=== PATIENT | male | born 1960 | race Caucasian/White ===

== ENCOUNTER → 2016-12-01 | Outpatient (CLI) | payer OTHER ==
[~2016-12-01] MED LIST: ALBUTEROL0.09 MG/A2 IH; CLARITIN10 MG PO; TOBRADEX 0.1%-0.5 ML OPH; ZITHROMAX Z PA250 MG PO
== END | disposition home or self-care (01) ==
LOC: US 15:55
DX: Z13.29 Encounter for screening for other suspected endocrine disorder (principal); E04.9 Nontoxic goiter, unspecified

== ENCOUNTER → 2016-12-09 | Outpatient (CLI) | payer OTHER ==
[2016-12-09 07:20] LABS: HEMATOCRIT 46.3 % (42.0-52.0); HEMOGLOBIN 15.3 g/dl (14.0-18.0); MEAN CELL VOLUME 90.8 fl (80.0-94.0); MEAN PLATELET VOLUME 10.8 fl (9.6-12.3); RED BLOOD COUNT 5.1 10*6/uL (4.50-5.90); RED CELL DISTRI WIDTH 13.3 % (0-14.5); WHITE BLOOD COUNT 7.7 10*3/uL (4.8-10.8)
[2016-12-09 07:51] LABS: ALBUMIN 3.8 gm/dl (3.1-4.5); ALKALINE PHOSPHATASE 99 U/L (45-117); BILIRUBIN, TOTAL 0.6 mg/dl (0.2-1.0); BUN 20 mg/dl (7-24); CARBON DIOXIDE 26 mmol/L (21-32); CHLORIDE 110 mmol/L (98-107); CHOLESTEROL 154 mg/dL (<200); EST GLOM FILT AFRICAN AMERICAN > 60 ml/min; FREE T4 0.82 ng/dl (0.76-1.46); GLUCOSE 103 mg/dL (65-99); HDL CHOLESTEROL 35 mg/dl (40-60); LDL CHOLESTEROL 75 mg/dL (9-159); POTASSIUM 4.1 mmol/L (3.5-5.1); SGOT/AST 25 IU/L (3-35); SGPT/ALT 55 U/L (12-78); SODIUM 144 mmol/L (136-145); TOTAL PROTEIN 7.1 gm/dL (6.4-8.2); TRIGLYCERIDES 222 mg/dl (<150); VLDL CHOLESTEROL 44 mg/dL (6-40)
== END | disposition home or self-care (01) ==
LOC: LAB 06:44
PROVIDERS: Family Medicine
DX: E04.2 Nontoxic multinodular goiter (principal); E55.9 Vitamin D deficiency, unspecified; R53.83 Other fatigue; E78.00 Pure hypercholesterolemia, unspecified

== ENCOUNTER → 2017-02-15 | Outpatient (CLI) | payer OTHER | END | disposition home or self-care (01) | LOC: LAB 23:35 | DX: E89.0 Postprocedural hypothyroidism (principal) ==

== ENCOUNTER → 2017-04-20 | Outpatient (CLI) | payer OTHER | END | disposition home or self-care (01) | LOC: LAB 07:38 | PROVIDERS: Internal Medicine Endocrinology, Diabetes & Metabolism | DX: C73 Malignant neoplasm of thyroid gland (principal); E89.0 Postprocedural hypothyroidism ==

== ENCOUNTER → 2017-07-07 | Outpatient (CLI) | payer OTHER ==
[2017-07-07 07:55] LABS: FREE T4 1.1 ng/dl (0.76-1.46)
[2017-07-07 08:00] LABS: THYROID STIM HORMONE (HS) 0.917 uIU/ml (0.358-4.75)
== END | disposition home or self-care (01) ==
LOC: LAB 06:59
PROVIDERS: Family Medicine
DX: Z12.5 Encounter for screening for malignant neoplasm of prostate (principal); E03.9 Hypothyroidism, unspecified

== ENCOUNTER → 2017-08-04 | Outpatient (CLI) | payer OTHER | END | disposition home or self-care (01) | LOC: CT 15:38 | DX: N20.0 Calculus of kidney (principal); K76.0 Fatty (change of) liver, not elsewhere classified ==

== ENCOUNTER → 2017-08-25 | Outpatient (CLI) | payer OTHER | END | disposition home or self-care (01) | LOC: MRI 10:00 → LAB 14:38 → MRI 15:00 | DX: H91.93 Unspecified hearing loss, bilateral (principal); H74.21 Discontinuity and dislocation of right ear ossicles; E89.0 Postprocedural hypothyroidism; Z85.850 Personal history of malignant neoplasm of thyroid ==

== ENCOUNTER 2017-09-06 13:52 | Emergency (ER) | payer OTHER ==
[~2017-09-06] VITALS: Ht 182.8 cm; Wt 113.4 kg
[2017-09-06] MEDS ORDERED: LEVOTHYROXINE137 MCG PO (14:22)
[2017-09-06] MEDS ORDERED: ORPHENADRINE C100 M1 PO (17:21)
[2017-09-06] MEDS ORDERED: NAPROSYN500 MG PO (17:21)
[2017-09-06 17:50] VITALS: BP 124/84
== END 2017-09-06 17:53 | disposition home or self-care (01) ==
LOC: ED 13:52
DX: S16.1XXA Strain of muscle, fascia and tendon at neck level, initial encounter (principal); S00.83XA Contusion of other part of head, initial encounter; Z79.899 Other long term (current) drug therapy; Z91.030 Bee allergy status; V49.88XA Car occupant (driver) (passenger) injured in other specified transport accidents, initial encounter; Y93.89 Activity, other specified; Y92.413 State road as the place of occurrence of the external cause; Y99.9 Unspecified external cause status

== ENCOUNTER → 2017-09-21 | Outpatient (CLI) | payer OTHER ==
[~2017-09-21] MED LIST changes: +LEVOTHYROXINE137 MCG PO; +NAPROSYN500 MG PO; +ORPHENADRINE C100 M1 PO
== END | disposition home or self-care (01) ==
LOC: MRI 08:56
DX: Q04.9 Congenital malformation of brain, unspecified (principal); R51 Headache

== ENCOUNTER → 2018-03-06 | Outpatient (CLI) | payer OTHER | END | disposition home or self-care (01) | LOC: LAB 10:44 | PROVIDERS: Internal Medicine Endocrinology, Diabetes & Metabolism | DX: E89.0 Postprocedural hypothyroidism (principal); C73 Malignant neoplasm of thyroid gland ==

== ENCOUNTER → 2018-06-28 | Outpatient (CLI) | payer OTHER | END | disposition home or self-care (01) | LOC: LAB 07:33 | DX: E89.0 Postprocedural hypothyroidism (principal) ==

== ENCOUNTER → 2018-08-23 | Outpatient (CLI) | payer OTHER | END | disposition home or self-care (01) | DX: N20.0 Calculus of kidney (principal); E89.0 Postprocedural hypothyroidism ==

== ENCOUNTER → 2018-10-02 | Outpatient (CLI) | payer OTHER | END | disposition home or self-care (01) | LOC: RAD 15:36 | DX: N20.0 Calculus of kidney (principal) ==

== ENCOUNTER → 2019-03-13 | Outpatient (CLI) | payer OTHER ==
[2019-03-13 15:45] LABS: BUN 17 mg/dl (7-24); CHLORIDE 110 mmol/L (98-107); CREATININE 1.12 mg/dL (0.70-1.30); POTASSIUM 3.8 mmol/L (3.5-5.1); PREALBUMIN 22 mg/dl (20-40); SODIUM 140 mmol/L (136-145); URIC ACID 6.6 mg/dL (3.5-7.2)
[2019-03-13 20:15] LABS: FREE T4 1.12 ng/dl (0.76-1.46)
[2019-03-13 20:19] LABS: THYROID STIM HORMONE (HS) 0.434 uIU/ml (0.358-4.75)
[2019-03-14 09:07] LABS: THYROID PEROXIDASE (TPO) AB 26 IU/mL (0-34)
[2019-03-14 14:08] LABS: THYROGLOBULIN ANTIBODY <1.0 IU/mL (0.0-0.9)
== END | disposition home or self-care (01) ==
LOC: LAB 14:44
PROVIDERS: Internal Medicine
DX: C73 Malignant neoplasm of thyroid gland (principal); E03.9 Hypothyroidism, unspecified; E55.9 Vitamin D deficiency, unspecified; N20.0 Calculus of kidney

== ENCOUNTER → 2019-09-10 | Outpatient (CLI) | payer OTHER ==
[2019-09-10 08:18] LABS: ALBUMIN 4.1 gm/dl (3.1-4.5); BUN 22 mg/dl (7-24); CHLORIDE 111 mmol/L (98-107); CREATININE 1.06 mg/dL (0.70-1.30); POTASSIUM 4.4 mmol/L (3.5-5.1); SODIUM 140 mmol/L (136-145); URIC ACID 6.6 mg/dL (3.5-7.2)
[2019-09-10 08:29] LABS: FREE T4 1.36 ng/dl (0.76-1.46); THYROID STIM HORMONE (HS) 0.377 uIU/ml (0.358-4.75)
[2019-09-11 06:05] LABS: THYROID PEROXIDASE (TPO) AB 30 IU/mL (0-34)
[2019-09-11 13:05] LABS: THYROGLOBULIN ANTIBODY <1.0 IU/mL (0.0-0.9)
== END | disposition home or self-care (01) ==
LOC: LAB 07:30
PROVIDERS: Internal Medicine
DX: C73 Malignant neoplasm of thyroid gland (principal); E03.9 Hypothyroidism, unspecified; E55.9 Vitamin D deficiency, unspecified; N20.0 Calculus of kidney

== ENCOUNTER → 2019-11-02 | Outpatient (CLI) | payer OTHER | END | disposition home or self-care (01) | LOC: US 15:38 | DX: C73 Malignant neoplasm of thyroid gland (principal); E89.0 Postprocedural hypothyroidism ==

== ENCOUNTER → 2020-01-07 | Outpatient (CLI) | payer OTHER ==
[2020-01-07 09:14] LABS: CHLORIDE 107 mmol/L (98-107); POTASSIUM 4.4 mmol/L (3.5-5.1); SODIUM 141 mmol/L (136-145)
[2020-01-07 09:29] LABS: BUN 21 mg/dl (7-24); CREATININE 1.12 mg/dL (0.70-1.30); FREE T4 1.34 ng/dl (0.76-1.46); THYROID STIM HORMONE (HS) 0.476 uIU/ml (0.358-4.75); URIC ACID 6.4 mg/dL (3.5-7.2)
[2020-01-07 10:07] LABS: PTH INTACT 75.5 pg/mL (18.5-88.0); VITAMIN D, 25-HYDROXY 44.1 ng/mL (30-100)
[2020-01-08 09:05] LABS: THYROID PEROXIDASE (TPO) AB 10 IU/mL (0-34)
[2020-01-08 13:04] LABS: THYROGLOBULIN ANTIBODY <1.0 IU/mL (0.0-0.9)
== END | disposition home or self-care (01) ==
LOC: LAB 08:01
PROVIDERS: Internal Medicine
DX: Z12.5 Encounter for screening for malignant neoplasm of prostate (principal); N20.0 Calculus of kidney; E03.9 Hypothyroidism, unspecified; E55.9 Vitamin D deficiency, unspecified; C73 Malignant neoplasm of thyroid gland; E74.39 Other disorders of intestinal carbohydrate absorption; E74.9 Disorder of carbohydrate metabolism, unspecified

== ENCOUNTER → 2020-05-09 | Outpatient (CLI) | payer OTHER ==
[2020-05-09 10:18] LABS: FREE T4 1.19 ng/dl (0.76-1.46); URIC ACID 5.4 mg/dL (3.5-7.2)
[2020-05-09 10:20] LABS: BUN 16 mg/dl (7-24); CHLORIDE 109 mmol/L (98-107); POTASSIUM 4.2 mmol/L (3.5-5.1); SODIUM 141 mmol/L (136-145)
[2020-05-09 10:22] LABS: ALKALINE PHOSPHATASE 95 U/L (45-117); CREATININE 1.09 mg/dL (0.70-1.30); SGOT/AST 18 IU/L (3-35); SGPT/ALT 33 U/L (12-78); TOTAL PROTEIN 7.6 gm/dL (6.4-8.2)
[2020-05-09 10:23] LABS: THYROID STIM HORMONE (HS) 0.412 uIU/ml (0.358-4.75)
[2020-05-10 09:10] LABS: THYROID PEROXIDASE (TPO) AB 14 IU/mL (0-34)
[2020-05-12 15:06] LABS: THYROGLOBULIN ANTIBODY <1.0 IU/mL (0.0-0.9)
== END | disposition home or self-care (01) ==
LOC: LAB 09:21
PROVIDERS: Family Medicine; ATTEND Internal Medicine
DX: C73 Malignant neoplasm of thyroid gland (principal); E03.9 Hypothyroidism, unspecified; E74.39 Other disorders of intestinal carbohydrate absorption; E66.9 Obesity, unspecified; E55.9 Vitamin D deficiency, unspecified; N20.0 Calculus of kidney

== ENCOUNTER → 2020-12-02 | Outpatient (CLI) | payer BC ==
[2020-12-02 13:22] LABS: ALBUMIN 3.9 gm/dl (3.1-4.5); BUN 14 mg/dl (7-24); CHLORIDE 109 mmol/L (98-107); CREATININE 0.93 mg/dL (0.70-1.30); FREE T4 1.12 ng/dl (0.76-1.46); POTASSIUM 4.2 mmol/L (3.5-5.1); SODIUM 139 mmol/L (136-145); URIC ACID 5.1 mg/dL (3.5-7.2)
[2020-12-02 13:27] LABS: THYROID STIM HORMONE (HS) 0.627 uIU/ml (0.358-4.75)
[2020-12-03 05:06] LABS: THYROID PEROXIDASE (TPO) AB 21 IU/mL (0-34)
[2020-12-03 15:07] LABS: THYROGLOBULIN ANTIBODY <1.0 IU/mL (0.0-0.9)
== END | disposition home or self-care (01) ==
LOC: LAB 11:38
PROVIDERS: ATTEND Internal Medicine
DX: E03.9 Hypothyroidism, unspecified (principal); E66.9 Obesity, unspecified; E74.39 Other disorders of intestinal carbohydrate absorption; E55.9 Vitamin D deficiency, unspecified; N20.0 Calculus of kidney; C73 Malignant neoplasm of thyroid gland

== ENCOUNTER → 2021-05-22 | Outpatient (CLI) | payer BC | END | disposition home or self-care (01) | LOC: RAD 13:31 | PROVIDERS: ATTEND Family Medicine | DX: U07.1 COVID-19 (principal); R05 Cough ==

== ENCOUNTER → 2021-07-27 | Outpatient (CLI) | payer BC ==
[2021-07-27 13:29] LABS: ALBUMIN 3.9 gm/dl (3.1-4.5); ALKALINE PHOSPHATASE 84 U/L (45-117); CHOLESTEROL 139 mg/dL (<200); FREE T4 1.04 ng/dl (0.76-1.46); LDL CHOLESTEROL 67 mg/dL (9-159); SGOT/AST 20 IU/L (3-35); SGPT/ALT 43 U/L (12-78); TOTAL PROTEIN 7.7 gm/dL (6.4-8.2); TRIGLYCERIDES 181 mg/dl (<150)
[2021-07-28 08:07] LABS: THYROID PEROXIDASE (TPO) AB 16 IU/mL (0-34)
[2021-07-28 14:08] LABS: THYROGLOBULIN ANTIBODY <1.0 IU/mL (0.0-0.9)
== END | disposition home or self-care (01) ==
LOC: LAB 12:45
PROVIDERS: ATTEND Internal Medicine
DX: E03.9 Hypothyroidism, unspecified (principal); E74.39 Other disorders of intestinal carbohydrate absorption; N20.0 Calculus of kidney; C73 Malignant neoplasm of thyroid gland; E55.9 Vitamin D deficiency, unspecified; E66.9 Obesity, unspecified

== ENCOUNTER → 2022-01-11 | Outpatient (CLI) | payer OTHER ==
[2022-01-11 13:05] LABS: FREE T4 1.06 ng/dl (0.76-1.46)
[2022-01-11 13:10] LABS: THYROID STIM HORMONE (HS) 0.493 uIU/ml (0.358-4.75)
[2022-01-12 08:09] LABS: THYROID PEROXIDASE (TPO) AB 21 IU/mL (0-34)
[2022-01-12 22:05] LABS: THYROGLOBULIN ANTIBODY <1.0 IU/mL (0.0-0.9)
== END | disposition home or self-care (01) ==
LOC: LAB 12:34
PROVIDERS: ATTEND Internal Medicine
DX: E03.9 Hypothyroidism, unspecified (principal); E74.39 Other disorders of intestinal carbohydrate absorption; C73 Malignant neoplasm of thyroid gland; E55.9 Vitamin D deficiency, unspecified

== ENCOUNTER → 2024-01-12 | Outpatient (CLI) | payer OTHER ==
[2024-01-12 15:00] LABS: FREE T4 1.37 ng/dl (0.89-1.76)
== END | disposition home or self-care (01) ==
LOC: LAB 14:03
PROVIDERS: ATTEND Family Medicine
DX: E03.9 Hypothyroidism, unspecified (principal); M54.2 Cervicalgia; R42 Dizziness and giddiness